=== PATIENT | male | born 1955 | race Two or more races ===

== ENCOUNTER 2017-12-04 08:26 | Day surgery (SDC) | payer OTHER ==
[~2017-12-04 08:26] MED LIST: ALTACE PO; METROPLOL PO; MOTRIN800 MG PO; PROZAC10 MG PO; SEPTRA DS TABLE1 TAB PO
[2017-12-04] MEDS ORDERED: POLY119PG PO (15:34)
[2017-12-04] MEDS ORDERED: ULTRACET PO (15:34)
[2017-12-04] MEDS ORDERED: SURFAK240 M1 PO (15:35)
== END 2017-12-04 21:30 | disposition home or self-care (01) ==
LOC: CIR.AMB 08:26
DX: K40.90 Unilateral inguinal hernia, without obstruction or gangrene, not specified as recurrent (principal); K42.0 Umbilical hernia with obstruction, without gangrene; K43.6 Other and unspecified ventral hernia with obstruction, without gangrene

== ENCOUNTER → 2018-11-08 | Outpatient (CLI) | payer OTHER ==
[~2018-11-08] MED LIST changes: +POLY119PG PO; +SURFAK240 M1 PO; +ULTRACET PO
== END | disposition home or self-care (01) ==
LOC: RAD 09:28
DX: M54.5 Low back pain (principal); M99.01 Segmental and somatic dysfunction of cervical region; M99.02 Segmental and somatic dysfunction of thoracic region; M99.03 Segmental and somatic dysfunction of lumbar region

== ENCOUNTER 2019-01-08 18:50 | Emergency (ER) | payer OTHER ==
[~2019-01-08] VITALS: Ht 180.3 cm; Wt 87.5 kg
[2019-01-08] MEDS ORDERED: PROZAC40 MG (19:51)
[2019-01-08] MEDS ORDERED: AZOR 5-20 MG T1 EACH (19:51)
== END 2019-01-08 21:22 | disposition home or self-care (01) ==
LOC: ER 18:50
DX: S01.01XA Laceration without foreign body of scalp, initial encounter (principal); W23.0XXA Caught, crushed, jammed, or pinched between moving objects, initial encounter; Y93.89 Activity, other specified; Y92.89 Other specified places as the place of occurrence of the external cause; Y99.8 Other external cause status

== ENCOUNTER 2020-06-22 12:22 | Emergency (ER) | payer OTHER ==
[~2020-06-22] VITALS: Ht 180.3 cm; Wt 86.2 kg
[~2020-06-22 12:22] MED LIST changes: +AZOR 5-20 MG T1 EACH; +PROZAC40 MG
[2020-06-22] MEDS ORDERED: TOPROL XL25 M1 (13:13)
[2020-06-22] MEDS ORDERED: NORFLEX100MG PO (16:11)
[2020-06-22] MEDS ORDERED: KETO10TA2 PO (16:11)
== END 2020-06-22 16:39 | disposition home or self-care (01) ==
LOC: ER 12:22
DX: S13.8XXA Sprain of joints and ligaments of other parts of neck, initial encounter (principal); S40.011A Contusion of right shoulder, initial encounter; S20.211A Contusion of right front wall of thorax, initial encounter; W18.39XA Other fall on same level, initial encounter; Y93.89 Activity, other specified; Y92.39 Other specified sports and athletic area as the place of occurrence of the external cause; Y99.8 Other external cause status